=== PATIENT | female | born 1980 | race Caucasian/White ===

== ENCOUNTER 2017-01-24 23:48 | Inpatient (IN) | payer OTHER ==
[~2017-01-24] VITALS: Ht 167.6 cm; Wt 79.7 kg
[~2017-01-24 23:48] MED LIST: ALPR-385 PO; GABA-1218 PO; PROM25TA9 PO; RTXI100 IV.
[2017-01-25] VITALS (9 sets, daily range): BP systolic 89–108; BP diastolic 54–72; PULSE 77–90; TEMP 36.4–36.9; O2SAT 94–99; Ht 167.6 cm; Wt 79.7 kg
[2017-01-25] MEDS ORDERED: SODIUM CHLORIDE 0.9% 1000ML 1,000 ML IV STA ×2 (00:06→02:44)
[2017-01-25] MEDS ORDERED: ONDANSETRON INJ 2 MG/ML 2 ML VIAL IV STA (00:07)
[2017-01-25] MEDS ORDERED: PANTOprazole INJ 40 MG in SYRINGE 0 ML IV ONE (00:15)
[2017-01-25] MEDS: GI COCKTAIL PO STA ×2 (00:32→00:43)
[2017-01-25 00:39] LABS: BASO ABS # 0.13 K/uL (0-0.2); COMPLETE YES; EOS % 2.5 %; HEMATOCRIT 43.4 % (37-47); IG% 0.2 %; LYMPH % 31.6 %; LYMPH ABS # 3.97 K/uL (1.2-3.4); MEAN CELL VOLUME 93.9 fL (80-100); MEAN CORPUSCULAR HEMOGLOBIN 33.3 pg (25-34); MEAN CORPUSCULAR HGB CONC 35.5 g/dl (32-36); MONO % 7.6 %; NEUT % 57.1 %; PLATELET COUNT 308 K/uL (130-400); RED BLOOD COUNT 4.62 M/uL (4.2-5.4); WHITE BLOOD COUNT 12.58 K/uL (4.8-10.8)
[2017-01-25] MEDS ORDERED: ALUMINUM/MAGNESIUM SUSP 30 ML UDC ONE (00:44)
[2017-01-25] MEDS ORDERED: LIDOCAINE HCL 2% VISC SOLN 20 ML UDC ONE (00:45)
[2017-01-25] MEDS ORDERED: OXYC15TA89 PO (00:50)
[2017-01-25 01:04] LABS: ALKALINE PHOSPHATASE 72 U/L (45-117); ALT/SGPT 18 U/L (12-78); AST/SGOT 10 U/L (15-37); BLOOD UREA NITROGEN 4 mg/dl (7-18); BUN/CREATININE RATIO 3.6 (10-20); CALCIUM 8.3 mg/dl (8.5-10.1); CARBON DIOXIDE 24 mmol/L (21-32); CHLORIDE 103 mmol/L (98-107); CREATININE 1.16 mg/dl (0.60-1.20); GLUCOSE 117 mg/dl (70-99); SODIUM 138 mmol/L (136-145)
--- NOTE | 2017-01-25 03:11 | EMERGENCY ROOM VISIT NOTE ---
History Report prepared by Perla: Jonathon Vergara Under the Supervision of: Dr. Chris Becerra D.O. First contact with patient: 23:56 Chief Complaint: ABDOMINAL PAIN Stated Complaint: STOMACH PAINS, THROWING UP WHAT LOOKS LIKE COFFEE History of Present Illness The patient is a 36 year old female with a history of ulcers who presents to the Emergency Room with complaints of persistent abdominal pain that started yesterday. She says that today at work, she had an episode of vomiting, and the vomit appeared to be coffee-ground. The patient states that her coworkers noted that she then turned very pale, and passed out for around 3 minutes. The patient was then taken to [facility], and had blood work and a CT scan without dye. She notes that she has an allergy to dye, and "swells up". She had a hemoglobin of 15.3 there, and her lactic acid was negative. The patient states that she was deemed to have a GI problem, and was told that she should be transferred here by ambulance because they did not have a GI doctor in [place] , but she did not want to pay the fee, so she decided against the transfer by ambulance. The patient notes that today she has had a total of 4 or 5 episodes of vomiting, all appearing coffee-ground. Each episode filled both her hands with coffee ground emesis. She adds that her stool has been dam attendant than normal , but there has not been any blood. The patient notes that she has a history of liver cancer, and cannot take any NSAIDS. She denies taking any steroids. Does have a previous history of cholecystectomy and liver cancer. Source of History: patient Onset: Yesterday Position: abdomen Symptom Intensity: was told she needed to be transferred here Quality: other (pain) Timing: other (persistent) Associated Symptoms: + LOC, + vomiting (coffee-ground), No hematochezia Note: Associated symptoms: Turned pale before passing out. Stools dam attendant than normal. Review of Systems See HPI for pertinent positives & negatives. A total of 10 systems reviewed and were otherwise negative. Past Medical & Surgical Medical Problems: (1) Chronic cervical pain (2) Chronic lumbar pain (3) Chronic migraine (4) Deep vein thrombosis (5) Graves' disease (6) Heart disease (7) Kidney disease (8) Lupus (systemic lupus erythematosus) (9) Multiple sclerosis (10) Ovarian torsion (11) Raynaud phenomenon Surgical Problems: (1) Hx of unilateral oophorectomy Family History FH: HTN (hypertension) FH: cancer FH: diabetes mellitus FH: gallbladder disease FH: heart disease FH: kidney disease FH: lung disease FH: seizures Social History Smoking Status: Current Every Day Smoker Alcohol Use: none Marital Status: Occupation Status: employed Current/Historical Medications Scheduled Gabapentin (Neurontin), 300 MG PO QID Rituximab (Rituxan), 10 MG IV. [id number] Scheduled PRN Oxycodone Hcl (Oxycontin), 15 MG PO DAILY PRN for Pain Promethazine Hcl (Phenergan), 25 MG PO Q4H PRN for Nausea Allergies Coded Allergies: Phenazopyridine (Verified Allergy, Mild, HIVES, 01/25/17) Adhesives (Verified Allergy, Unknown, hives, 01/25/17) Amoxicillin (Verified Allergy, Unknown, hives, 01/25/17) Aspirin (Verified Allergy, Unknown, hives, 01/25/17) Hydrocodone (Verified Allergy, Unknown, causes bad nerves, 01/25/17) Iodinated Diagnostic Agents (Verified Allergy, Unknown, swelling, 01/25/17 ) Ketorolac Tromethamine (Verified Allergy, Unknown, hives, 01/25/17) Latex (Verified Allergy, Unknown, swell, 01/25/17) Levofloxacin (Verified Allergy, Unknown, hives, 01/25/17) Metoclopramide (Verified Allergy, Unknown, hives, 01/25/17) Metronidazole (Verified Allergy, Unknown, hives, 01/25/17) Naproxen (Verified Allergy, Unknown, flushing and severe nausea, 01/25/17) Penicillins (Verified Allergy, Unknown, hives, 01/25/17) Sulfa Antibiotics (Verified Allergy, Unknown, hives, 01/25/17) Tramadol (Verified Allergy, Unknown, hives, 01/25/17) Physical Exam Vital Signs Date Time Temp Pulse Resp B/P (MAP) Pulse Ox O2 Delivery O2 Flow Rate FiO2 01/25/17 03:50 98 18 99 01/25/17 03:03 98 17 97 Room Air 01/25/17 01:27 108 19 98 Room Air 01/24/17 23:52 36.9 128 20 109/75 96 Room Air Physical Exam GENERAL: Sitting up in bed, disheveled, mild distress, nontoxic EYE EXAM: normal conjunctiva. OROPHARYNX: no exudate, no erythema, lips, buccal mucosa, and tongue normal and mucous membranes are dry NECK: supple, no nuchal rigidity, no adenopathy, non-tender LUNGS: Clear to auscultation. Normal chest wall mechanics HEART: no murmurs, S1 normal and S2 normal ABDOMEN: Mild diffuse tenderness in epigastric region. Abdomen soft, normo- active bowel sounds, no masses, no rebound or guarding. BACK: Back is symmetrical on inspection and there is no deformity, no midline tenderness, no CVA tenderness. RECTAL: No external hemorrhoid, heme negative. SKIN: no rashes and no bruising UPPER EXTREMITIES: upper extremities are grossly normal. LOWER EXTREMITIES: No pitting edema. NEURO EXAM: Normal sensorium, cranial nerves II-XII grossly intact, normal speech, no gross weakness of arms, no gross weakness of legs. Medical Decision & Procedures ER Provider Diagnostic Interpretation: CT from [facility]: CT ABDOMEN & PELVIS Without Contrast: Status post cholecystectomy. No clear biliary dilation on limited noncontrast assessment. No urolithiasis or hydronephrosis. Status post appendectomy. No bowel obstruction or perforation. Hysterectomy. Fullness of the right ovary. Radiologist: Kunal Terry M.D. Laboratory Results 01/25/17 00:23 Red Blood Count 4.62, Mean Corpuscular Volume 93.9, Mean Corpuscular Hemoglobin 33.3, Mean Corpuscular Hemoglobin Concent 35.5, Mean Platelet Volume 10.0, Neutrophils (%) (Auto) 57.1, Lymphocytes (%) (Auto) 31.6, Monocytes (%) (Auto) 7.6, Eosinophils (%) (Auto) 2.5, Basophils (%) (Auto) 1.0, Neutrophils # (Auto) 7.17, Lymphocytes # (Auto) 3.97, Monocytes # (Auto) 0.96, Eosinophils # (Auto) 0.32, Basophils # (Auto) 0.13 01/25/17 00:23 Test 01/25/17 00:23 01/25/17 02:58 White Blood Count 12.58 K/uL (4.8-10.8) Red Blood Count 4.62 M/uL (4.2-5.4) Hemoglobin 15.4 g/dL (12.0-16.0) Hematocrit 43.4 % (37-47) Mean Corpuscular Volume 93.9 fL (80-100) Mean Corpuscular Hemoglobin 33.3 pg (25-34) Mean Corpuscular Hemoglobin Concent 35.5 g/dl (32-36) Platelet Count 308 K/uL (130-400) Mean Platelet Volume 10.0 fL (7.4-10.4) Neutrophils (%) (Auto) 57.1 % Lymphocytes (%) (Auto) 31.6 % Monocytes (%) (Auto) 7.6 % Eosinophils (%) (Auto) 2.5 % Basophils (%) (Auto) 1.0 % Neutrophils # (Auto) 7.17 K/uL (1.4-6.5) Lymphocytes # (Auto) 3.97 K/uL (1.2-3.4) Monocytes # (Auto) 0.96 K/uL (0.11-0.59) Eosinophils # (Auto) 0.32 K/uL (0-0.5) Basophils # (Auto) 0.13 K/uL (0-0.2) RDW Standard Deviation 44.0 fL (36.4-46.3) RDW Coefficient of Variation 12.8 % (11.5-14.5) Immature Granulocyte % (Auto) 0.2 % Immature Granulocyte # (Auto) 0.03 K/uL (0.00-0.02) Prothrombin Time 10.2 SECONDS (9.0-12.0) Prothromb Time International Ratio 1.0 (0.9-1.1) Anion Gap 11.0 mmol/L (3-11) Est Creatinine Clear Calc Drug Dose 71.6 ml/min Estimated GFR () 70.6 Estimated GFR (Non- 61.0 BUN/Creatinine Ratio 3.6 (10-20) Calcium Level 8.3 mg/dl (8.5-10.1) Total Bilirubin 0.2 mg/dl (0.2-1) Direct Bilirubin mg/dl (0-0.2) Aspartate Amino Transf (AST/SGOT) 10 U/L (15-37) Alanine Aminotransferase (ALT/SGPT) 18 U/L (12-78) Alkaline Phosphatase 72 U/L (45-117) Total Protein 7.4 gm/dl (6.4-8.2) Albumin 3.6 gm/dl (3.4-5.0) Lipase 53 U/L (73-393) Chemistry Specimen Hemolysis Urine Color YELLOW Urine Appearance CLEAR (CLEAR) Urine pH 5.5 (4.5-7.5) Urine Specific [place] 1.014 (1.000-1.030) Urine Protein NEG (NEG) Urine Glucose (UA) NEG (NEG) Urine Ketones NEG (NEG) Urine Occult Blood NEG (NEG) Urine Nitrite NEG (NEG) Urine Bilirubin NEG (NEG) Urine Urobilinogen NEG (NEG) Urine Leukocyte Esterase NEG (NEG) Urine WBC (Auto) 1-5 /hpf (0-5) Urine RBC (Auto) 0-4 /hpf (0-4) Urine Hyaline Casts (Auto) 1-5 /lpf (0-5) Urine Epithelial Cells (Auto) 20-30 /lpf (0-5) Urine Bacteria (Auto) NEG (NEG) Urine Test NEG (NEG) Urine Opiates Screen POS (NEG) Urine Methadone, Qualitative NEG (NEG) Urine Barbiturates NEG (NEG) Urine Phencyclidine (PCP) Level NEG (NEG) Ur Amphetamine/Methamphetamine NEG (NEG) MDMA (Ecstasy) Screen NEG (NEG) Urine Benzodiazepines Screen NEG (NEG) Urine Cocaine Metabolite NEG (NEG) Urine Marijuana (THC) NEG (NEG) Laboratory results per my review. Medications Administered Medications (Trade) Dose Ordered Sig/Hilario Route Start Time Stop Time Status Last Admin Dose Admin Sodium Chloride 1,000 ml @ 999 mls/hr Q1H1M STAT IV 01/25/17 00:06 01/25/17 01:06 DC 01/25/17 00:42 999 MLS/HR Pantoprazole Sodium 40 mg/ Syringe 10 ml @ 5 mls/min NOW ONCE IV 01/25/17 00:15 01/25/17 00:16 DC 01/25/17 00:42 5 MLS/MIN Sodium Chloride 1,000 ml @ 999 mls/hr Q1H1M STAT IV 01/25/17 02:44 01/25/17 03:44 DC 01/25/17 03:00 999 MLS/HR ECG Indication: vomiting Rate (beats per minute): 92 Rhythm: sinus rhythm Findings: no acute ischemic change, no ectopy, other (normal axis) ED Course ED COURSE: Vital signs were reviewed and showed tachycardic vitals. The patients medical record was reviewed The above diagnostic studies were performed and reviewed. ED treatments and interventions as stated above. 2357: The patient was evaluated in room A3. A complete history and physical examination was performed. 0006: Ordered NSS 1000 ml @ 999 mls/hr IV. 0007: Ordered Zofran Inj 4 mg IV. 0015: Ordered Pantoprazole Sodium 40 mg/Syringe 10 ml @ 5 mls/min IV. 0023: I discussed the patient with the physician at [place] - he says that he attempted to transfer the patient to [place], but the patient requested to leave , and did not want to be transferred. 0032: I reevaluated the patient and she refused the Zofran. She says that she is very upset at the other facility for not giving her additional pain medications. Ordered GI Cocktail 24 ml PO. 0230: Upon reevaluation, the patient is resting.I discussed my findings with the patient and she understands and agrees with the treatment plan. Based on the patients age, coexisting illnesses, exam and lab findings the decision to treat as an inpatient was made. The patient remained stable while under my care. The patient will be evaluated for further management. 0244: Ordered NSS 1000 ml @ 999 mls/hr IV. 0328: I reviewed the patient's case with Dr. Apple - [facility] clinical studies specialist. He will evaluate the patient for further management. Medical Decision Differential diagnoses includes but is not limited to gastritis, peptic ulcer disease, GERD, gallbladder disease, pancreatitis, small bowel obstruction, acute coronary syndrome, pericarditis, ischemic bowel, irritable bowel disease, irritable bowel syndrome, appendicitis, diverticulitis, malignancy, hernia, urinary tract infection, torsion, /ectopic , perforation, trauma, infectious. Patient is a 36-year-old female who presents to ER for abdominal pain. She was initially seen in [facility] where she presented there for coffee-ground emesis 4. She notes she has a history of gastric ulcers. She's been admitted to [facility] on 3 separate occasions for this. She had a CT of the abdomen which was negative at [facility]. I did review this. Lactate was 1.6 at [place]. Following her evaluation there the physician recommended transferring to [place] or [facility]. Patient did not want to pay for the ambulance ride and left AMA and presented here as directed. CBC shows a mild leukocytosis. Hemoglobin is 15 consistent with earlier hemoglobin. BMP, LFTs, bilirubin and lipase are unremarkable. Previous UA was unremarkable. Rectal was heme-negative. Offered GI cocktail but she declined as this normally makes her nauseous. Offered Zofran which she also declined as this gives her a headache. I did give her IV Protonix. She requested additional pain medications which I declined as I felt uncomfortable with this because she was declining all other medications and at one point was stating that she was going to leave. Vitals were remarkable for a tachycardia in the 130s which improved to low 100s. Patient was updated at bedside. Attempted to obtain records from [facility]. Consulted internal medicine for admission, as she reports multiple bouts of coffee-ground emesis filling both hands and was being transferred here from [facility] for admission but elected to travel by private vehicle. Medication Reconcilliation Current Medication List: was personally reviewed by me Blood Pressure Screening Patient's blood pressure: Normal blood pressure Consults Time Called: 002 Consulting Physician: Physician at [place] Returned Call: 0023 I discussed the patient with the physician at [place] - he says that he attempted to transfer the patient to [place], but the patient requested to leave , and did not want to be transferred. Additional Consults: Time Called: 0325 Consulted Physician: Dr. Ambika MAGANA clinical studies specialist Returned Call: 0328 Additional Comments: I reviewed the patient's case with Dr. Ambika MAGANA clinical studies specialist. He will evaluate the patient for further management. Impression Primary Impression: Upper GI bleed Additional Impression: Abdominal pain Scribe Attestation The scribe's documentation has been prepared under my direction and personally reviewed by me in its entirety. I confirm that the note above accurately reflects all work, treatment, procedures, and medical decision making performed by me. Departure Information Dispostion Being Evaluated By Hospitalist Referrals No Doctor, Assigned (PCP) Patient Instructions My [facility] Problem Qualifiers Additional Impression: Abdominal pain Abdominal location: unspecified location Qualified Codes: R10.9 - Unspecified abdominal pain
[2017-01-25 03:15] LABS: URINE APPEARANCE CLEAR (CLEAR); URINE BILIRUBIN NEG (NEG); URINE COLOR YELLOW; URINE EPITHELIAL CELL AUTO 20-30 /lpf (0-5); URINE NITRITE NEG (NEG); URINE PH 5.5 (4.5-7.5); URINE SPECIFIC GRAVITY 1.014 (1.000-1.030); UROBILINOGEN NEG (NEG); ZZUR CULT IF INDIC CLEAN CATCH NO
[2017-01-25 03:17] LABS: PREG INTERNAL NEGATIVE QC NEG CLEAR BACKGROUND; PREG INTERNAL POSITIVE QC POS CONTROL LINE
[2017-01-25 03:18] LABS: MANUAL MICROSCOPIC REQUIRED? NO; REVIEW REQ? NO
[2017-01-25 03:35] LABS: BENZODIAZEPINE, URINE NEG (NEG); COCAINE,URINE NEG (NEG); PHENCYCLIDINE, URINE NEG (NEG)
[2017-01-25 03:42] LABS: PROTHROMBIN TIME (PATIENT) 10.2 SECONDS (9.0-12.0)
[2017-01-25] MEDS ORDERED: ACETAMINOPHEN 325 MG TAB PO PRN (03:45)
[2017-01-25] MEDS ORDERED: ONDANSETRON INJ 2 MG/ML 2 ML VIAL IV PRN (03:45)
[2017-01-25] MEDS ORDERED: OXYCODONE HCL 15 MG TABCR (OXYCONTIN) PO PRN (03:45)
--- NOTE | 2017-01-25 04:28 | History and Physical ---
History & Physical Date & Time of Service: Jan 25, 2017 at 03:54 Chief Complaint: Stomach Pains, Throwing Up What Looks Like Coffee Primary Care Physician: No Doctor, Assigned History of Present Illness Source: patient 36 y/o F - complex medical history includes NMO, liver CA in remission, complex migraines, chronic pain with opiate-dependence, gastric ulcers. Pt developed nausea and upper abdominal pain at work, which was followed by vomiting of coffee-ground emesis and a brief syncopal episode. She was initially taken to [facility] by coworkers. She reports that she had 4-5 additional episodes of coffee-ground emesis prior to arrival at [place]. She was scheduled to be transferred to [facility] by ambulance due to a lack of GI service at [place]. she refused ambulance transfer and arrived at the [facility] ER of her own accord. She has not had additional episodes of emesis this AM, however, her upper abdominal pain persists. She denies diarrhea or dark colored stool. Denies SOB, palpitations or light-headedness. Initial Hb is above 15. A CT abdomen from [place] was reviewed and did not reveal any acute abnormalities. 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 She was initially misdiagnosed with MS in 2009 and then had the diagnosis revised at [facility] in 2010 as she was not responding to her MS treatments. She has been on Rituxan since diagnosis with stable disease. 2) Liver CA - a mass was discovered in her liver in 2011. This was successfully treated with Nexavar. She reports full remission. 3) Gastric ulcers and hematemesis 2015, 2016 - treated with EGD/cauterization at [place]. 4) Sepsis following ablation of her Cervix 5) Chronic pain and opiate-dependence 6) Renal calculi 7) Migraines Surgical 1) Oopherectomy - unilateral due to torsion 2010 - complicated by sepsis - states she had a gangrenous uterus and was in critical condition 2) Hysterectomy 2011 3) Cholecystectomy 2012 4) Appendectomy 2010 5) R breast lumpectomy 6) Multiple cystoscopies for obstructing calculi Family History FH: HTN (hypertension) FH: cancer FH: diabetes mellitus FH: gallbladder disease FH: heart disease FH: kidney disease FH: lung disease FH: seizures Social History Smoking Status: Current Every Day Smoker Marital Status: Occupational Status: employed Allergies Coded Allergies: Phenazopyridine (Verified Allergy, Mild, HIVES, 01/25/17) Adhesives (Verified Allergy, Unknown, hives, 01/25/17) Amoxicillin (Verified Allergy, Unknown, hives, 01/25/17) Aspirin (Verified Allergy, Unknown, hives, 01/25/17) Hydrocodone (Verified Allergy, Unknown, causes bad nerves, 01/25/17) Iodinated Diagnostic Agents (Verified Allergy, Unknown, swelling, 01/25/17 ) Ketorolac Tromethamine (Verified Allergy, Unknown, hives, 01/25/17) Latex (Verified Allergy, Unknown, swell, 01/25/17) Levofloxacin (Verified Allergy, Unknown, hives, 01/25/17) Metoclopramide (Verified Allergy, Unknown, hives, 01/25/17) Metronidazole (Verified Allergy, Unknown, hives, 01/25/17) Naproxen (Verified Allergy, Unknown, flushing and severe nausea, 01/25/17) Penicillins (Verified Allergy, Unknown, hives, 01/25/17) Sulfa Antibiotics (Verified Allergy, Unknown, hives, 01/25/17) Tramadol (Verified Allergy, Unknown, hives, 01/25/17) Home Medications Scheduled Gabapentin (Neurontin), 300 MG PO QID Rituximab (Rituxan), 10 MG IV. [id number] Scheduled PRN Oxycodone Hcl (Oxycontin), 15 MG PO DAILY PRN for Pain Promethazine Hcl (Phenergan), 25 MG PO Q4H PRN for Nausea Review of Systems Constitutional: No fever, No chills, No sweats Eyes: No worsening of vision ENT: No hearing loss, No unusual epistaxis Respiratory: No cough, No sputum, No wheezing Cardiovascular: No chest pain, No orthopnea, No PND Abdomen: + pain, + nausea, + vomiting, + GI bleeding, + problem reported ( reported hematemesis x 4-5) Musculoskeletal: No joint pain Genitourinary - Female: No dysuria Neurologic: No memory loss, No paralysis, No weakness Psychiatric: No depression symptoms Endocrine: No fatigue Hematologic / Lymphatic: + abnormal bleeding/bruising Integumentary: No rash Allergic / Immunologic: No environmental allergies Physical Exam Vital Signs Date Time Temp Pulse Resp B/P (MAP) Pulse Ox O2 Delivery O2 Flow Rate FiO2 01/25/17 03:03 98 17 97 Room Air 01/25/17 01:27 108 19 98 Room Air 01/24/17 23:52 36.9 128 20 109/75 96 Room Air General Appearance: WD/WN, no apparent distress Head: normocephalic Eyes: normal inspection ENT: normal ENT inspection, pharynx normal Neck: supple, no JVD Respiratory/Chest: chest non-tender, lungs clear, normal breath sounds Cardiovascular: regular rate, rhythm, no edema, no gallop, no JVD, no murmur, normal peripheral pulses Abdomen/GI: normal bowel sounds, non tender, soft, + pertinent finding (Mild diffuse abdomial tenderness to palpation) Back: normal inspection, no CVA tenderness, no muscle spasm, normal range of motion Extremities/Musculoskelatal: normal inspection, no calf tenderness, normal capillary refill, no pedal edema, normal range of motion 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, no motor/sensory deficits, alert, normal mood/affect, normal reflexes, oriented x 3 Skin: normal color Diagnostics Laboratory Results Results Past 24 Hours Test 01/25/17 00:23 01/25/17 02:58 Range/Units White Blood Count 12.58 4.8-10.8 K/uL Red Blood Count 4.62 4.2-5.4 M/uL Hemoglobin 15.4 12.0-16.0 g/dL Hematocrit 43.4 37-47 % Mean Corpuscular Volume 93.9 80-100 fL Mean Corpuscular Hemoglobin 33.3 25-34 pg Mean Corpuscular Hemoglobin Concent 35.5 32-36 g/dl Platelet Count 308 130-400 K/uL Mean Platelet Volume 10.0 7.4-10.4 fL Neutrophils (%) (Auto) 57.1 % Lymphocytes (%) (Auto) 31.6 % Monocytes (%) (Auto) 7.6 % Eosinophils (%) (Auto) 2.5 % Basophils (%) (Auto) 1.0 % Neutrophils # (Auto) 7.17 1.4-6.5 K/uL Lymphocytes # (Auto) 3.97 1.2-3.4 K/uL Monocytes # (Auto) 0.96 0.11-0.59 K/uL Eosinophils # (Auto) 0.32 0-0.5 K/uL Basophils # (Auto) 0.13 0-0.2 K/uL RDW Standard Deviation 44.0 36.4-46.3 fL RDW Coefficient of Variation 12.8 11.5-14.5 % Immature Granulocyte % (Auto) 0.2 % Immature Granulocyte # (Auto) 0.03 0.00-0.02 K/uL Prothrombin Time 10.2 9.0-12.0 SECONDS Prothromb Time International Ratio 1.0 0.9-1.1 Sodium Level 138 136-145 mmol/L Potassium Level 4.0 3.5-5.1 mmol/L Chloride Level 103 98-107 mmol/L Carbon Dioxide Level 24 21-32 mmol/L Anion Gap 11.0 3-11 mmol/L Blood Urea Nitrogen 4 7-18 mg/dl Creatinine 1.16 0.60-1.20 mg/dl Est Creatinine Clear Calc Drug Dose 71.6 ml/min Estimated GFR () 70.6 Estimated GFR (Non- 61.0 BUN/Creatinine Ratio 3.6 10-20 Random Glucose 117 70-99 mg/dl Calcium Level 8.3 8.5-10.1 mg/dl Total Bilirubin 0.2 0.2-1 mg/dl Direct Bilirubin 0-0.2 mg/dl Aspartate Amino Transf (AST/SGOT) 10 15-37 U/L Alanine Aminotransferase (ALT/SGPT) 18 12-78 U/L Alkaline Phosphatase 72 45-117 U/L Total Protein 7.4 6.4-8.2 gm/dl Albumin 3.6 3.4-5.0 gm/dl Lipase 53 73-393 U/L Chemistry Specimen Hemolysis Urine Color YELLOW Urine Appearance CLEAR CLEAR Urine pH 5.5 4.5-7.5 Urine Specific [place] 1.014 1.000-1.030 Urine Protein NEG NEG Urine Glucose (UA) NEG NEG Urine Ketones NEG NEG Urine Occult Blood NEG NEG Urine Nitrite NEG NEG Urine Bilirubin NEG NEG Urine Urobilinogen NEG NEG Urine Leukocyte Esterase NEG NEG Urine WBC (Auto) 1-5 0-5 /hpf Urine RBC (Auto) 0-4 0-4 /hpf Urine Hyaline Casts (Auto) 1-5 0-5 /lpf Urine Epithelial Cells (Auto) 20-30 0-5 /lpf Urine Bacteria (Auto) NEG NEG Urine Test NEG NEG Urine Opiates Screen POS NEG Urine Methadone, Qualitative NEG NEG Urine Barbiturates NEG NEG Urine Phencyclidine (PCP) Level NEG NEG Ur Amphetamine/Methamphetamine NEG NEG MDMA (Ecstasy) Screen NEG NEG Urine Benzodiazepines Screen NEG NEG Urine Cocaine Metabolite NEG NEG Urine Marijuana (THC) NEG NEG Diagnostic Radiology CT abdomen: no acute abnormalities - fullness of R ovary, post hysterectomy, post appendectomy, post cholecystectomy Impression Assessment and Plan 36 y/o F - complex medical history includes NMO, liver CA in remission, complex migraines, chronic pain with opiate-dependence, gastric ulcers. Pt developed nausea and upper abdominal pain at work, which was followed by vomiting of coffee-ground emesis and a brief syncopal episode. She was initially taken to [facility] by coworkers. She reports that she had 4-5 additional episodes of coffee-ground emesis prior to arrival at [place]. She was scheduled to be transferred to [facility] by ambulance due to a lack of GI service at [place]. she refused ambulance transfer and arrived at the [facility] ER of her own accord. She has not had additional episodes of emesis this AM, however, her upper abdominal pain persists. She denies diarrhea or dark colored stool. Denies SOB, palpitations or light-headedness. Initial Hb is above 15. A CT abdomen from [place] was reviewed and did not reveal any acute abnormalities. 1) GI bleed - reported coffee-ground emesis. Pt placed on PPi, provided with IVF and kept NPO pending GI evaluation. Hb will be trended - she is stable with a normal Hb at time of admission. Reg her abdominal pain - she can remain on her daily long-acting narcotics for the time being. 2) Syncope - likely vago-vagal following abdominal pain and vomiting - she is assigned to telemetry overnight 3) NMO - can f/u as outpt to continue Rituxan. Full code - SCDs due top possibility if active bleed Total time for this admit including review of labs, meds, imaging - discussion with pt and ER attending - 35 min Level of Care Telemetry Resuscitation Status FULL RESUSCITATION VTE Prophylaxis VTE Risk Assessment Done? Y/N: Yes Risk Level: Moderate Given or contraindicated: SCD's
[2017-01-25] MEDS ORDERED: IV FLUIDS COMPLETED PRN (04:30)
[2017-01-25] MEDS: PROMETHAZINE HCL 25 MG TAB PO PRN ×3 (05:12→17:27)
[2017-01-25] MEDS: D5NSS + 20MEQ KCL 1,000 ML IV SCH ×2 (05:13→15:36)
[2017-01-25] MEDS ORDERED: PNEUMOCOCCAL POLYSACCHARIDES 25 MCG/0.5 ML VIAL/SYR IM. ONE (06:30)
[2017-01-25] MEDS ORDERED: PNEUMOCOCCAL ADMINISTRATION CHARGE ONE (06:30)
--- NOTE | 2017-01-25 09:30 | Progress Note ---
Progress Note Date of Service Jan 25, 2017. Progress Note Please see full consult as it was dictated this morning. Patient likely has a Janna-Baez tear which is generally self limited there appears to be no significant drop in her hemoglobin overnight we will therefore recommend endoscopy tomorrow. I Recommendations Patient may have clears today Continue with Protonix drip Please obtain a KUB to evaluate for evidence of constipation given her chronic narcotic use Dr. Whyte to see the patient tomorrow
[2017-01-25] MEDS: GABAPENTIN 300 MG CAP PO SCH ×5 (09:52→21:51)
[2017-01-25] MEDS: PANTOprazole INJ 40 MG in SYRINGE 0 ML IV SCH ×2 (09:52→21:49)
--- NOTE | 2017-01-25 10:21 | GASTROINTESTINAL CONSULTATION ---
DATE OF CONSULTATION: 01/25/2017 REQUESTING PHYSICIAN: Bebeto Feliciano doing consult for Dr. Bhat (COVERING). CHIEF COMPLAINT: Coffee-ground emesis. HISTORY OF PRESENT ILLNESS: The patient is a 36-year-old female with a past medical history notable for migraines, chronic abdominal pain, opioid dependence, prior history of peptic ulcer disease who presented to [facility] after having 1-2 days of nausea and vomiting. The patient notes that she had several hours of nausea and vomiting at home, which was unremitting, then became tinged with coffee grounds. The patient denies having dark sticky stools over the last 24-48 hours. The patient was admitted with suspected gastrointestinal hemorrhage, placed on Protonix drip and IV hydration. This morning, she notes that she does not have any vomiting and is in her usual state of health. She does have a significant abdominal discomfort, which has been an ongoing problem for many years. The patient does have a complicated past medical history and is somewhat of a poor historian. PAST MEDICAL HISTORY: 1. Migraines: 2. DVTs. 3. Grave's disease. 4. Chronic kidney disease. 5. History of lupus. 6. History of multiple sclerosis. 7. Raynaud's. PAST SURGICAL HISTORY: 1. Oophorectomy: 2. Hysterectomy. 3. Cholecystectomy. OUTPATIENT MEDICATIONS: 1. Neurontin 300 mg q.i.d. 2. Rituxan 10 mg every 3 months. 3. The patient on chronic narcotics. 4. Oxycodone 50 mg as needed. 5. Phenergan 25 mg as needed for nausea. ALLERGIES: AMOXICILLIN, ASPIRIN, HYDROCODONE, IODINE, KETOROLAC, LATEX, LEVOFLOXACIN, REGLAN, METRONIDAZOLE, NAPROSYN, PENICILLIN, SULFA ANTIBIOTICS, ULTRAM. SOCIAL HISTORY: The patient is a smoker, 1/2-1 pack per day. The patient is . The patient is currently employed. The patient denies alcohol use. REVIEW OF SYSTEMS: CONSTITUTIONAL: No fevers, no chills. EYES: No worsening of vision. ENT: No hearing loss, no epistaxis. RESPIRATORY: No cough, no shortness of breath today. CARDIOVASCULAR: No chest pain. GASTROINTESTINAL: History of nausea and vomiting. MUSCULOSKELETAL: No joint pain. GENITOURINARY: No dysuria. NEUROLOGIC: No memory loss. PSYCHIATRIC: History of depression. ENDOCRINE: No fatigue noted. PHYSICAL EXAMINATION: VITAL SIGNS: Temperature 36.6, pulse 81, respiratory rate 18, blood pressure is 105/72, pulse ox 97% on room air. HEENT: No scleral icterus noted. No JVD noted. LUNGS: Clear to auscultation. CARDIAC: Regular rate and rhythm. ABDOMEN: Soft. The patient notes tenderness throughout her entire abdomen. EXTREMITIES: No edema. DERMATOLOGY: No spider nevi noted. No petechia noted. NEUROLOGIC: Cranial nerves grossly intact. Motor grossly intact. LABORATORIES: On admission, white blood cell count 12.5, hemoglobin 15.4, hematocrit is 43.4, platelet count 308. Hemoglobin this morning after IV hydration 13.5. PT 10.2, INR 1.0. Chemistry; sodium 138, potassium 4.0, BUN 4, creatinine 1.16, calcium 8.3, bilirubin 0.2, AST 10, ALT 18, alkaline phosphatase 72, albumin 3.6, lipase 53. Tox screen positive for opiates, negative for THC. IMPRESSION: A 36-year-old female presented with coffee-ground emesis. The history is somewhat reminiscent of a Janna-Baez tear. It appears that she had stopped bleeding on her own. There has been a minimal drop in her hemoglobin and hematocrit overnight. I would suggest that we continue with IV Protonix and monitor her blood count overnight. If there continues to be a decline in her hematocrit and hemoglobin, we would recommend endoscopy tomorrow, which has been arranged. If there is no drop in her hemoglobin and hematocrit, then we could likely discontinue or cancel the endoscopy for tomorrow. RECOMMENDATIONS: 1. Consider KUB given her use of narcotics, would evaluate for evidence of constipation. 2. The patient may have clear liquids today. 3. Continue with Protonix as you are doing. 4. Endoscopy scheduled for Sunday as today is a holiday. 5. Please call with any questions or concerns. The patient will most likely follow up with Dr. Bhat as an outpatient. DESTINEY
[2017-01-25] MEDS: OXYCODONE HCL IR 5 MG TAB (IMMEDIATE RELEASE) PO PRN ×3 (11:19→23:16)
--- NOTE | 2017-01-25 11:33 | Progress Note ---
Subjective Date of Service: Jan 25, 2017. Subjective Pt evaluation today including: conversation w/ patient, physical exam, lab review, conversation w/ inside sales consultant, review of inpatient medication list Pain: epigastric and back pain PO Intake: NPO Voiding: no voiding problems patient feeling a little better, still with pain, no vomiting, definitely no coffee grounds vitals stable Hb stable on labs appreciate GI consultation Problem List Medical Problems: (1) Abdominal pain Status: Acute (2) Flank pain Status: Acute (3) Upper GI bleed Status: Acute (4) UTI (urinary tract infection) Status: Acute Review of Systems Abdomen: + pain, + nausea Musculoskeletal: + joint pain (back) All Other Systems: Reviewed and Negative Medications Current Inpatient Medications Medications (Trade) Dose Ordered Sig/Hilario Route Start Time Stop Time Status Last Admin Dose Admin Gabapentin (Neurontin Cap) 300 mg QID PO 01/25/17 09:00 02/24/17 08:59 01/25/17 09:52 300 MG Promethazine HCl (Phenergan Tab) 25 mg Q4H PRN PO 01/25/17 03:45 02/24/17 03:44 01/25/17 05:12 25 MG Acetaminophen (Tylenol Tab) 650 mg Q4H PRN PO 01/25/17 03:45 02/24/17 03:44 Zolpidem Tartrate (Ambien Tab) 5 mg HSZ PRN PO 01/25/17 03:45 02/24/17 03:44 Ondansetron HCl (Zofran Inj) 4 mg Q6H PRN IV 01/25/17 03:45 02/24/17 03:44 Pantoprazole Sodium 40 mg/ Syringe 10 ml @ 5 mls/min DAILY@ IV 01/25/17 09:00 02/24/17 08:59 01/25/17 09:52 5 MLS/MIN Potassium Chloride/Dextrose/ Sod Cl 1,000 ml @ 100 mls/hr Q10H IV 01/25/17 05:15 01/26/17 01:14 01/25/17 05:13 100 MLS/HR Miscellaneous (Iv Fluids Completed) 1 ea PRN PRN N/A 01/25/17 04:30 01/25/18 04:29 Oxycodone HCl (Roxicodone Immediate Rel Tab) 15 mg Q6 PRN PO 01/25/17 10:30 02/08/17 10:29 01/25/17 11:19 15 MG Objective Vital Signs Date Time Temp Pulse Resp B/P (MAP) Pulse Ox O2 Delivery O2 Flow Rate FiO2 01/25/17 08:00 97 Room Air 01/25/17 07:33 36.6 81 18 89/54 (66) 97 Room Air 01/25/17 04:15 36.9 90 16 105/72 (83) 99 Room Air 01/25/17 04:15 36.6 90 16 105/72 99 Room Air 01/25/17 03:50 98 18 99 01/25/17 03:03 98 17 97 Room Air 01/25/17 01:27 108 19 98 Room Air 01/24/17 23:52 36.9 128 20 109/75 96 Room Air Physical Exam General Appearance: WD/WN, no apparent distress Eyes: normal inspection, EOMI, sclerae normal ENT: normal ENT inspection, hearing grossly normal, pharynx normal Neck: supple, no adenopathy, no JVD, trachea midline Respiratory/Chest: chest non-tender, lungs clear, normal breath sounds, no respiratory distress, no accessory muscle use Cardiovascular: regular rate, rhythm, no edema, no gallop, no JVD, no murmur Abdomen: normal bowel sounds, soft, no organomegaly, + tenderness (epigastric and RUQ) Extremities: normal range of motion, non-tender, normal inspection, no pedal edema, no calf tenderness Neurologic/Psychiatric: hot stone setter II-XII nml as tested, no motor/sensory deficits, alert, normal mood/affect, oriented x 3 Skin: normal color, warm/dry, no rash Laboratory Results Last 24 Hours Test 01/25/17 00:23 01/25/17 02:58 01/25/17 06:36 White Blood Count 12.58 K/uL Red Blood Count 4.62 M/uL Hemoglobin 15.4 g/dL 13.5 g/dL Hematocrit 43.4 % Mean Corpuscular Volume 93.9 fL Mean Corpuscular Hemoglobin 33.3 pg Mean Corpuscular Hemoglobin Concent 35.5 g/dl Platelet Count 308 K/uL Mean Platelet Volume 10.0 fL Neutrophils (%) (Auto) 57.1 % Lymphocytes (%) (Auto) 31.6 % Monocytes (%) (Auto) 7.6 % Eosinophils (%) (Auto) 2.5 % Basophils (%) (Auto) 1.0 % Neutrophils # (Auto) 7.17 K/uL Lymphocytes # (Auto) 3.97 K/uL Monocytes # (Auto) 0.96 K/uL Eosinophils # (Auto) 0.32 K/uL Basophils # (Auto) 0.13 K/uL RDW Standard Deviation 44.0 fL RDW Coefficient of Variation 12.8 % Immature Granulocyte % (Auto) 0.2 % Immature Granulocyte # (Auto) 0.03 K/uL Prothrombin Time 10.2 SECONDS Prothromb Time International Ratio 1.0 Sodium Level 138 mmol/L Potassium Level 4.0 mmol/L Chloride Level 103 mmol/L Carbon Dioxide Level 24 mmol/L Anion Gap 11.0 mmol/L Blood Urea Nitrogen 4 mg/dl Creatinine 1.16 mg/dl Est Creatinine Clear Calc Drug Dose 71.6 ml/min Estimated GFR () 70.6 Estimated GFR (Non- 61.0 BUN/Creatinine Ratio 3.6 Random Glucose 117 mg/dl Calcium Level 8.3 mg/dl Total Bilirubin 0.2 mg/dl Direct Bilirubin mg/dl Aspartate Amino Transf (AST/SGOT) 10 U/L Alanine Aminotransferase (ALT/SGPT) 18 U/L Alkaline Phosphatase 72 U/L Total Protein 7.4 gm/dl Albumin 3.6 gm/dl Lipase 53 U/L Chemistry Specimen Hemolysis Urine Color YELLOW Urine Appearance CLEAR Urine pH 5.5 Urine Specific [place] 1.014 Urine Protein NEG Urine Glucose (UA) NEG Urine Ketones NEG Urine Occult Blood NEG Urine Nitrite NEG Urine Bilirubin NEG Urine Urobilinogen NEG Urine Leukocyte Esterase NEG Urine WBC (Auto) 1-5 /hpf Urine RBC (Auto) 0-4 /hpf Urine Hyaline Casts (Auto) 1-5 /lpf Urine Epithelial Cells (Auto) 20-30 /lpf Urine Bacteria (Auto) NEG Urine Test NEG Urine Opiates Screen POS Urine Methadone, Qualitative NEG Urine Barbiturates NEG Urine Phencyclidine (PCP) Level NEG Ur Amphetamine/Methamphetamine NEG MDMA (Ecstasy) Screen NEG Urine Benzodiazepines Screen NEG Urine Cocaine Metabolite NEG Urine Marijuana (THC) NEG Assessment and Plan 36 yo female presented with reported coffee ground emesis, several times, associated with dry heaves 1) GI bleed - reported coffee-ground emesis no further episodes since admission, nauseated this AM but she reports having an appetite Protonix IV BID allow liquids, NPO after midnight in case she needs a scope stop q4 H/H and just repeat in the AM differential would be gastritis, PUD, Janna Desiree tear? may not need a scope if Hb stable and no further episodes 2) Syncope - likely vago-vagal following abdominal pain and vomiting no arrhythmias transfer off tele 3) chronic back pain reviewed the [place] prescribers [place], she takes Oxycodone 15mg q6 last prescription was on 01/03 she has a consistent prescriber, no concerns for abuse at this time continue above dose while in the hospital transfer off tele, NPO after midnight, repeat H/H in the AM, if no scope needed then could be d/c tomorrow
[2017-01-26 00:27] VITALS: BP 106/59; PULSE 83; TEMP 36.6; O2SAT 98
[2017-01-26] MEDS: PROMETHAZINE HCL 25 MG TAB PO PRN ×2 (06:28→16:15)
[2017-01-26] MEDS: OXYCODONE HCL IR 5 MG TAB (IMMEDIATE RELEASE) PO PRN ×3 (06:33→20:39)
[2017-01-26] MEDS: GABAPENTIN 300 MG CAP PO SCH ×4 (07:52→20:39)
[2017-01-26] MEDS: PANTOprazole INJ 40 MG in SYRINGE 0 ML IV SCH ×2 (07:55→20:39)
[2017-01-26 08:00] VITALS: BP 107/66; PULSE 85; TEMP 36.5; O2SAT 98
[2017-01-26 08:02] VITALS: O2SAT 98
[2017-01-26 09:02] LABS: HEMATOCRIT 39.8 % (37-47)
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
[2017-01-26] MEDS ORDERED: DIAZEPAM 5MG TAB PO SCH (12:00)
[2017-01-26] MEDS ORDERED: HYDROmorphone INJ 1 MG/ML SYR IV ONE ×2 (12:30→15:30)
--- NOTE | 2017-01-26 13:00 | Progress Note ---
Subjective Date of Service: Jan 26, 2017. Subjective Pt evaluation today including: conversation w/ patient, physical exam, lab review, conversation w/ search consultant, review of inpatient medication list Pain: still with RUQ pain, epigastric pain PO Intake: NPO Voiding: no voiding problems patient has more pain today, cannot rest had dry heaves again this AM, probably from taking Oxycodone on empty stomach appreciate GI note, no plans for EGD during admission, follow up 4 weeks, recommend liquid diet today H/H stable d/w patient, since she says pain is 10 out of 10, will check MRCP (h/o cholecystectomy) and liver profile, lipase again single dose of Dilaudid IV given Problem List Medical Problems: (1) Abdominal pain Status: Acute (2) Flank pain Status: Acute (3) Upper GI bleed Status: Acute (4) UTI (urinary tract infection) Status: Acute Review of Systems Abdomen: + pain (RUQ and epigastric), + nausea All Other Systems: Reviewed and Negative Medications Current Inpatient Medications Medications (Trade) Dose Ordered Sig/Hilario Route Start Time Stop Time Status Last Admin Dose Admin Gabapentin (Neurontin Cap) 300 mg QID PO 01/25/17 09:00 02/24/17 08:59 01/26/17 07:52 300 MG Promethazine HCl (Phenergan Tab) 25 mg Q4H PRN PO 01/25/17 03:45 02/24/17 03:44 01/26/17 06:28 25 MG Acetaminophen (Tylenol Tab) 650 mg Q4H PRN PO 01/25/17 03:45 02/24/17 03:44 01/25/17 21:50 650 MG Zolpidem Tartrate (Ambien Tab) 5 mg HSZ PRN PO 01/25/17 03:45 02/24/17 03:44 Ondansetron HCl (Zofran Inj) 4 mg Q6H PRN IV 01/25/17 03:45 02/24/17 03:44 Pantoprazole Sodium 40 mg/ Syringe 10 ml @ 5 mls/min DAILY@ IV 01/25/17 09:00 02/24/17 08:59 01/26/17 07:55 5 MLS/MIN Miscellaneous (Iv Fluids Completed) 1 ea PRN PRN N/A 01/25/17 04:30 01/25/18 04:29 Oxycodone HCl (Roxicodone Immediate Rel Tab) 15 mg Q6 PRN PO 01/25/17 10:30 02/08/17 10:29 01/26/17 06:33 15 MG Diazepam (Valium Tab) 5 mg TODAY@1200 PO 01/26/17 12:00 01/26/17 23:59 01/26/17 12:09 5 MG Objective Vital Signs Date Time Temp Pulse Resp B/P (MAP) Pulse Ox O2 Delivery O2 Flow Rate FiO2 01/26/17 08:02 98 Room Air 01/26/17 08:00 36.5 85 18 107/66 (80) 98 Room Air 01/26/17 00:27 36.6 83 16 106/59 (75) 98 Room Air 01/26/17 00:00 Room Air 01/25/17 16:08 36.4 80 18 96/64 (75) 99 Room Air 01/25/17 15:30 99 Room Air Physical Exam General Appearance: WD/WN, no apparent distress Eyes: normal inspection, EOMI, sclerae normal ENT: normal ENT inspection, hearing grossly normal, pharynx normal Neck: supple, no adenopathy, no JVD, trachea midline Respiratory/Chest: chest non-tender, lungs clear, normal breath sounds, no respiratory distress, no accessory muscle use Cardiovascular: regular rate, rhythm, no edema, no gallop, no JVD, no murmur Abdomen: normal bowel sounds, soft, no organomegaly, + tenderness (RUQ and epigastric) Extremities: normal range of motion, non-tender, normal inspection, no pedal edema, no calf tenderness, pelvis stable Neurologic/Psychiatric: wash mill operator II-XII nml as tested, no motor/sensory deficits, alert, normal mood/affect, oriented x 3 Skin: normal color, warm/dry, no rash Lymphatic: no adenopathy Laboratory Results Last 24 Hours Test 01/26/17 08:38 Hemoglobin 13.3 g/dL Hematocrit 39.8 % Assessment and Plan 36 yo female presented with reported coffee ground emesis, several times, associated with dry heaves, RUQ pain 1) RUQ pain and reported coffee ground emesis no further episodes of vomiting, although she does have spells of dry heaves increased pain today in RUQ, described as severe Protonix IV BID GI recommends liquid diet today, plan for EGD in 4 weeks as outpatient H/H stable will repeat CMP, lipase today and get MRCP to evaluate RUQ pain, h/o cholecystectomy per patient, was told in the past that her biliary ducts were abnormal? single dose of Dilaudid IV but then continue Oxycodone 15mg q6 (home dose) 2) Syncope - likely vago-vagal following abdominal pain and vomiting no arrhythmias transfer off tele 3) chronic back pain reviewed the [place] prescrib[place], she takes Oxycodone 15mg q6 last prescription was on 01/03 she has a consistent prescriber, no concerns for abuse at this time continue above dose while in the hospital no plans to d/c today as increased pain and nausea check MRCP, lipase, CMP liquids today, advance as tolerated change to full admit
[2017-01-26 13:18] LABS: BUN/CREATININE RATIO 3.6 (10-20); CALCIUM 8.1 mg/dl (8.5-10.1); CREATININE 0.78 mg/dl (0.60-1.20); POTASSIUM 4.2 mmol/L (3.5-5.1)
--- NOTE | 2017-01-26 13:19 | DIAGNOSTIC IMAGING REPORT ---
MRCP CLINICAL HISTORY: Severe right upper quadrant pain status post cholecystectomy. COMPARISON STUDY: CT of the abdomen and pelvis June 03, 2015. TECHNIQUE: Utilizing a 1.5 Elida magnet, multiplanar, multiecho imaging of the upper abdomen was performed utilizing heavily T2 weighted pulsing sequences. FINDINGS: There is no biliary ductal dilatation status post cholecystectomy. Common bile duct measures 5 mm in caliber. No common bile duct calculi are identified. The course and caliber of the main pancreatic duct are normal. There is no peripancreatic infiltration. There are no peripancreatic fluid collections. There is no hydronephrosis. A probable 1.2 cm cyst within the upper pole the right kidney is noted. There is no ascites or lymphadenopathy within the abdomen. Caliber of visualized small and large bowel are normal. IMPRESSION: 1. Unremarkable MRCP status post cholecystectomy. 2. No biliary ductal dilatation or choledocholithiasis. Electronically signed by: Oscar Ruelas M.D. 01/26/2017 1:18 PM Dictated Date/Time: 01/26/2017 1:04 PM
[2017-01-26 15:12] VITALS: BP 104/60; PULSE 89; TEMP 36.8; O2SAT 96
[2017-01-26] MEDS ORDERED: NURSING VERBAL MED ORDER ONE (15:30)
[2017-01-26 16:00] VITALS: O2SAT 96
[2017-01-26] MEDS ORDERED: ACETAMINOPHEN IV 650 MG in EMPTY BAG 0 ML IV PRN (23:45)
[2017-01-27 00:21] VITALS: BP 96/61; PULSE 92; TEMP 37; O2SAT 96
[2017-01-27] MEDS: PROMETHAZINE HCL 25 MG TAB PO PRN ×3 (00:34→20:02)
[2017-01-27] MEDS: ZOLPIDEM TARTRATE 5 MG TAB PO PRN ×2 (01:05→20:03)
[2017-01-27] MEDS: OXYCODONE HCL IR 5 MG TAB (IMMEDIATE RELEASE) PO PRN ×4 (02:18→20:01)
[2017-01-27 06:39] LABS: BASO % 0.9 %; BASO ABS # 0.06 K/uL (0-0.2); COMPLETE YES; EOS % 4.6 %; HEMATOCRIT 40.2 % (37-47); IG% 0.3 %; LYMPH % 38.2 %; LYMPH ABS # 2.68 K/uL (1.2-3.4); MEAN CELL VOLUME 94.8 fL (80-100); MEAN CORPUSCULAR HGB CONC 34.8 g/dl (32-36); MEAN PLATELET VOLUME 9.8 fL (7.4-10.4); MONO % 10.8 %; NEUT % 45.2 %; PLATELET COUNT 255 K/uL (130-400); RED BLOOD COUNT 4.24 M/uL (4.2-5.4); WHITE BLOOD COUNT 7.02 K/uL (4.8-10.8)
[2017-01-27 07:07] LABS: ALT/SGPT 15 U/L (12-78); AST/SGOT 9 U/L (15-37); BLOOD UREA NITROGEN 6 mg/dl (7-18); CALCIUM 8.2 mg/dl (8.5-10.1); CARBON DIOXIDE 27 mmol/L (21-32); CHLORIDE 103 mmol/L (98-107); CREATININE 0.85 mg/dl (0.60-1.20); GLUCOSE 79 mg/dl (70-99); SODIUM 137 mmol/L (136-145)
[2017-01-27 07:09] LABS: ALKALINE PHOSPHATASE 64 U/L (45-117)
[2017-01-27] MEDS: GABAPENTIN 300 MG CAP PO SCH ×4 (07:48→20:03)
[2017-01-27 08:48] VITALS: BP_SYST 81; BP_SYST 97; BP_DIAS 52; BP_DIAS 58; PULSE 78; TEMP 36.9; O2SAT 97
[2017-01-27] MEDS: PANTOprazole INJ 40 MG in SYRINGE 0 ML IV SCH ×2 (08:56→20:03)
[2017-01-27 15:50] VITALS: BP 144/71; PULSE 96; TEMP 36.9; O2SAT 94
[2017-01-27 23:48] VITALS: BP 96/63; PULSE 96; TEMP 36.7; O2SAT 93
[2017-01-28] MEDS: OXYCODONE HCL IR 5 MG TAB (IMMEDIATE RELEASE) PO PRN ×5 (02:04→23:47)
[2017-01-28] MEDS: PROMETHAZINE HCL 25 MG TAB PO PRN ×3 (03:44→20:41)
[2017-01-28 07:21] VITALS: BP 100/70; PULSE 81; TEMP 36.9; O2SAT 96
[2017-01-28] MEDS: GABAPENTIN 300 MG CAP PO SCH ×4 (07:43→20:36)
[2017-01-28] MEDS: PANTOprazole INJ 40 MG in SYRINGE 0 ML IV SCH (08:26)
[2017-01-28] MEDS ORDERED: SUCRALFATE 1 GM TAB PO SCH (09:00)
--- NOTE | 2017-01-28 10:23 | DIAGNOSTIC IMAGING REPORT ---
KUB HISTORY: Generalized abdominal pain, nausea COMPARISON: Abdomen and pelvis CT 06/03/2015. FINDINGS: The bowel gas pattern is unremarkable. There are no dilated loops of small bowel to suggest an obstruction. No renal calculi. No ureteral calculi. Calcifications in the deep pelvis likely represent phleboliths. Cholecystectomy. Moderate well-formed stool seen throughout the colon. The lung bases are clear. No pneumoperitoneum or pneumatosis. IMPRESSION: No evidence for bowel obstruction. Moderate well-formed stool seen throughout the colon. Electronically signed by: Mikael To M.D. 01/28/2017 10:22 AM Dictated Date/Time: 01/28/2017 10:22 AM
[2017-01-28 15:30] VITALS: BP 110/72; PULSE 97; TEMP 36.8; O2SAT 96
[2017-01-28] MEDS ORDERED: ZOLPIDEM TARTRATE 10 MG TAB PO PRN (15:45)
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
[2017-01-28 18:37] LABS: COD UR NEGATIVE NG/ML (CUTOFF=50); HYDROCOD UR NEGATIVE NG/ML (CUTOFF=50); HYDROMOR UR NEGATIVE NG/ML (CUTOFF=50); MORPHINE UR NEGATIVE NG/ML (CUTOFF=50); NORHYDROCODONE CONF UR NEGATIVE NG/ML (CUTOFF=50); OXYMORPH UR 1970 NG/ML (CUTOFF=50)
[2017-01-28] MEDS: PANTOprazole SOD 40 MG TAB PO SCH (20:36)
[2017-01-28 23:35] VITALS: BP 132/85; PULSE 120; TEMP 36.8; O2SAT 94
[2017-01-29] VITALS: O2SAT 94
[2017-01-29] MEDS: OXYCODONE HCL IR 5 MG TAB (IMMEDIATE RELEASE) PO PRN ×3 (05:54→18:20)
[2017-01-29] MEDS: PROMETHAZINE HCL 25 MG TAB PO PRN ×3 (05:58→18:19)
[2017-01-29 07:34] VITALS: BP 115/83; PULSE 122; TEMP 36.8; O2SAT 94
[2017-01-29] MEDS: GABAPENTIN 300 MG CAP PO SCH ×3 (08:51→18:19)
[2017-01-29] MEDS: PANTOprazole SOD 40 MG TAB PO SCH ×2 (08:51→18:19)
[2017-01-29] MEDS ORDERED: SODIUM CHLORIDE 0.9% 500ML 500 ML IV STA (09:44)
[2017-01-29] MEDS ORDERED: NURSING VERBAL MED ORDER ONE (10:15)
[2017-01-29] MEDS ORDERED: OXYCODONE HCL IR 5 MG TAB (IMMEDIATE RELEASE) PO ONE (10:30)
[2017-01-29] MEDS ORDERED: PRT40 PO (13:08)
[2017-01-29] MEDS ORDERED: ACET-1047 PO (13:08)
--- NOTE | 2017-01-29 13:18 | Discharge Instructions ---
Discharge Instructions Date of Service Jan 29, 2017. Admission Reason for Admission: Upper Gi Bleed Discharge Discharge Diagnosis / Problem: ABdominal pain, upper GI bleeding Discharge Goals Goal(s): Improve disease control, Diagnostic testing, Therapeutic intervention Activity Recommendations Activity Limitations: resume your previous activity Lifting Limitations: none Exercise/Sports Limitations: none Shower/Bathe: no limitations Driving or Machine Use: no limitations . Instructions / Follow-Up Instructions / Follow-Up Please follow up with your family doctor within 1-2 weeks. Please follow up with the GI doctor within 4 weeks for an EGD (scope of your stomach) Current Hospital Diet Patient's current hospital diet: Regular Diet Discharge Diet Recommended Diet: Regular Diet Procedures Procedures Performed: MRCP KUB/Abdomen xray Pending Studies Studies pending at discharge: no Medical Emergencies . Who to Call and When: Medical Emergencies: If at any time you feel your situation is an emergency, please call 911 immediately. . Non-Emergent Contact Non-Emergency issues call your: Primary Care Provider Call Non-Emergent contact if: temperature is above 100.5, your pain is not controlled, your pain is worsening, your pain is unusual for you, your pain is concerning you, you have any medication questions . . "Provider Documentation" section prepared by Cecelia Foster. . VTE Core Measure Inpt VTE Proph given/why not?: SCD's [place] Drug Monitoring Program Search Results: patient reviewed within database, no issues identified
[2017-01-29 13:51] VITALS: BP 115/83; PULSE 122; TEMP 36.8; O2SAT 94
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
== END 2017-01-29 20:05 | disposition home or self-care (01) | DRG 378 ==
LOC: C.EDB 23:49 → C.2T 01-25 03:36 → ENRESERV 01-25 03:41 → C.MS2W 01-25 12:28 → OBSVTOIN 01-26 15:20
PROVIDERS: ADMIT Internal Medicine; ATTEND Family Medicine
DX: K92.0 Hematemesis (principal); F11.20 Opioid dependence, uncomplicated; G36.0 Neuromyelitis optica [Devic]; R55 Syncope and collapse; R10.9 Unspecified abdominal pain; G89.29 Other chronic pain; M54.9 Dorsalgia, unspecified; G47.00 Insomnia, unspecified; N20.0 Calculus of kidney; F17.200 Nicotine dependence, unspecified, uncomplicated; Z79.899 Other long term (current) drug therapy; Z85.05 Personal history of malignant neoplasm of liver; Z87.11 Personal history of peptic ulcer disease; Z87.442 Personal history of urinary calculi; Z86.19 Personal history of other infectious and parasitic diseases; Z91.410 Personal history of adult physical and sexual abuse; Z82.49 Family history of ischemic heart disease and other diseases of the circulatory system; Z83.3 Family history of diabetes mellitus

== ENCOUNTER 2017-10-02 02:16 | Emergency (ER) | payer OTHER ==
[~2017-10-02] VITALS: Ht 167.6 cm; Wt 76.5 kg
[~2017-10-02 02:16] MED LIST changes: +ACET-1047 PO; -ALPR-385 PO; +OXYC15TA89 PO; +PANT1TAB4 PO
[2017-10-02 02:21] VITALS: BP 111/68; PULSE 139; TEMP 37.1; O2SAT 96; Ht 167.6 cm; Wt 76.5 kg
--- NOTE | 2017-10-02 02:43 | EMERGENCY ROOM VISIT NOTE ---
History Report prepared by Perla: Mackenzie Guzman Under the Supervision of: Dr. Imer Norris M.D. 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 She reports she fell out of her motor home onto a metal step and injured her right hip. She states she did not hear a pop, but she did hear "a crunch." Since then, she has had worsening pain which brought her to the ED tonight. The patient states that sitting on her side worsens her pain. She states she has weakness and swelling but denies her leg turning blue. The patient notes she has a history of hip dysplasia and she is moving to [place] next week and is going to have surgery. Notes multiple previous dislocations though denies fractures. Takes rx narcotic regularly for chronic pain. Denies other traumas nor injuries. 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 Negative leg turning blue. Review of Systems See HPI for pertinent positives & negatives. A total of 6 systems reviewed and were otherwise negative. Past Medical & Surgical Medical Problems: (1) Chronic cervical pain (2) Chronic lumbar pain (3) Chronic migraine (4) Deep vein thrombosis (5) Graves' disease (6) Heart disease (7) Kidney disease (8) Lupus (systemic lupus erythematosus) (9) Multiple sclerosis (10) Ovarian torsion (11) Raynaud phenomenon Surgical Problems: (1) Hx of unilateral oophorectomy Family History FH: HTN (hypertension) FH: cancer FH: diabetes mellitus FH: gallbladder disease FH: heart disease FH: kidney disease FH: lung disease FH: seizures Social History Smoking Status: Current Every Day Smoker Alcohol Use: none Marital Status: Occupation Status: employed Current/Historical Medications Scheduled Gabapentin (Neurontin), 300 MG PO QID Pantoprazole (Pantoprazole Sodium), 40 MG PO BID Rituximab (Rituxan), 10 MG IV. [id number] Scheduled PRN Acetaminophen (Mapap), 650 MG PO Q4H PRN for Pain or Fever Oxycodone Hcl (Oxycontin), 15 MG PO DAILY PRN for Pain Promethazine Hcl (Phenergan), 25 MG PO Q4H PRN for Nausea Allergies Coded Allergies: Phenazopyridine (Verified Allergy, Mild, HIVES, 01/25/17) Adhesives (Verified Allergy, Unknown, hives, 01/25/17) Amoxicillin (Verified Allergy, Unknown, hives, 01/25/17) Aspirin (Verified Allergy, Unknown, hives, 01/25/17) Hydrocodone (Verified Allergy, Unknown, causes bad nerves, 01/25/17) Iodinated Diagnostic Agents (Verified Allergy, Unknown, swelling, 01/25/17 ) Ketorolac Tromethamine (Verified Allergy, Unknown, hives, 01/25/17) Latex (Verified Allergy, Unknown, swell, 01/25/17) Levofloxacin (Verified Allergy, Unknown, hives, 01/25/17) Metoclopramide (Verified Allergy, Unknown, hives, 01/25/17) Metronidazole (Verified Allergy, Unknown, hives, 01/25/17) Naproxen (Verified Allergy, Unknown, flushing and severe nausea, 01/25/17) Penicillins (Verified Allergy, Unknown, hives, 01/25/17) Sulfa Antibiotics (Verified Allergy, Unknown, hives, 01/25/17) Tramadol (Verified Allergy, Unknown, hives, 01/25/17) Physical Exam Vital Signs Date Time Temp Pulse Resp B/P (MAP) Pulse Ox O2 Delivery O2 Flow Rate FiO2 10/02/17 02:21 37.1 139 20 111/68 96 Room Air Physical Exam GENERAL: Patient is uncomfortable appearing and in mild distress. EYES: No scleral icterus, unremarkable pupils. NECK: No masses appreciated, no meningismus, trachea is midline. RESPIRATORY: No dyspnea. Clear to auscultation and equal bilaterally. No wheeze , no rhonchi. CARDIOVASCULAR: Regular rate and rhythm. No murmurs, rubs, gallops appreciated. EXTREMITIES: Normal motion all extremities, no cyanosis, no edema. Tenderness to palpation of the right lateral thigh and hip NEUROLOGIC: Alert and oriented, no acute motor or sensory deficits, no focal weakness, cranial nerves grossly intact. SKIN: No rash, no jaundice, no diaphoresis. Medical Decision & Procedures ER Provider Diagnostic Interpretation: Radiology results and stated below per my review and interpretation: 4 Views Right Femur No fracture. No dislocation 1 View Pelvis No fracture. No dislocation. Bilateral hips appear similar. Mild degenerative changes of pelvis noted. ED Course 0228: The patient was evaluated in room A12. A complete history and physical exam was performed. 0320: Reevaluated the patient. She will follow up with an orthopedic surgeon as planned. Discussed results and discharge instructions: She verbalized understanding and agreement. The patient is ready for discharge. Medical Decision Differential: Fracture, Dislocation, Cellulitis, Septic Joint, Ligamentous Injury, Effusion, DVT, amongst other pathologies entertained. 37 yr old female arrives for evaluation of right hip pain. Chronic hip pain though fell last week and pain worsened. No acute fractures nor dislocations that I can see on imaging of femur, hip nor pelvis. She is not interested in ct pelvis at this time. She is apparently headed to [place] for surgical approach to her chronic hip dysplasia. She has extensive pain meds at home for this chronic issue. N/V is intact. Reviewed RTED if worsening or other concerns. Medication Reconcilliation Current Medication List: was personally reviewed by me Blood Pressure Screening Patient's blood pressure: Normal blood pressure Blood pressure disposition: Did not require urgent referral Impression Primary Impression: Hip pain, right Additional Impression: Contusion of right hip and thigh Scribe Attestation The scribe's documentation has been prepared under my direction and personally reviewed by me in its entirety. I confirm that the note above accurately reflects all work, treatment, procedures, and medical decision making performed by me. Departure Information Dispostion Home / Self-Care Referrals No Doctor, Assigned (PCP) Forms HOME CARE DOCUMENTATION FORM, IMPORTANT VISIT INFORMATION, WORK / SCHOOL INSTRUCTIONS Patient Instructions ED Sprain Hip, My [facility] Health Problem Qualifiers
--- NOTE | 2017-10-02 07:25 | DIAGNOSTIC IMAGING REPORT ---
SINGLE VIEW PELVIS CLINICAL HISTORY: Fall. Right hip pain. FINDINGS: An AP view of the pelvis is correlated with pelvic CT dated 06/03/2015. The skeletal structures are well mineralized. There is no radiographic evidence of fracture involving the hips or bony pelvis. The joint spaces of the hips are preserved. Mild sclerotic change is noted in the sacroiliac joints. The overlying soft tissues are normal in appearance. Pelvic phleboliths are observed. There is no bowel obstruction. Suture material is seen in the right lower quadrant. IMPRESSION: Unremarkable radiographic assessment of the hips and bony pelvis. Electronically signed by: Rashad Tee M.D. 10/02/2017 7:24 AM Dictated Date/Time: 10/02/2017 7:23 AM
--- NOTE | 2017-10-02 07:26 | DIAGNOSTIC IMAGING REPORT ---
RIGHT FEMUR 3 VIEWS CLINICAL HISTORY: Fall one week ago with right leg pain. FINDINGS: AP, frog-leg, and crosstable lateral views of the right femur are obtained. No prior studies are available for comparison at the time of dictation. The skeletal structures are well mineralized. There is no radiographic evidence of right femoral fracture. The visualized right hemipelvis appears intact. Mild sclerotic change is noted in the right sacroiliac joint. The right hip and knee joints appear maintained. The overlying soft tissues are normal in appearance. IMPRESSION: There is no radiographic evidence of right femoral fracture. Electronically signed by: Rashad Tee M.D. 10/02/2017 7:25 AM Dictated Date/Time: 10/02/2017 7:24 AM
== END 2017-10-02 03:31 | disposition home or self-care (01) ==
LOC: C.EDB 02:17 → C.EDA 03:31
DX: M25.551 Pain in right hip (principal); W17.89XA Other fall from one level to another, initial encounter; W22.8XXA Striking against or struck by other objects, initial encounter; Q65.89 Other specified congenital deformities of hip; M54.5 Low back pain; M54.2 Cervicalgia; G89.29 Other chronic pain; F17.200 Nicotine dependence, unspecified, uncomplicated; Z79.899 Other long term (current) drug therapy; Z88.0 Allergy status to penicillin; Z88.6 Allergy status to analgesic agent; Z91.041 Radiographic dye allergy status; Z88.2 Allergy status to sulfonamides; Z88.8 Allergy status to other drugs, medicaments and biological substances; Z91.048 Other nonmedicinal substance allergy status